=== PATIENT | female | born 1980 | race Caucasian/White ===

== ENCOUNTER 2019-05-15 14:26 | Emergency (ER) | payer SELFPAY ==
[2019-05-15] MEDS ORDERED: Ibuprofen TAB* 600 MG PO ONE (14:29)
--- NOTE | 2019-05-15 14:36 | ED ---
Lower Extremity - HPI Summary HPI Summary: Patient is a 38 y/o F presenting to the ED via EMS for a chief complaint of left ankle pain and swelling. 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 She twisted her left ankle and now has left ankle pain and swelling. She also admits numbness in the left ankle, but denies paresthesia. Patient denies head injury or back pain. She denies any alleviating factors, but admits the pain worsens with movement. Patient denies PMHx, but admits PSHx of 4 months ago. Patient denies alcohol, tobacco, or drug use. Medications reviewed. Allergies noted. - History of Current Complaint Stated Complaint: LT ANKLE INJ PER EMS Time Seen by Provider: 05/15/19 14:29 Hx Obtained From: Patient Mechanism Of Injury: Fall From Height Of: - 4 feet Onset of Pain: Immediate Onset/Duration: Minutes Severity Initially: Moderate Severity Currently: Moderate Pain Scale Used: 0-10 Numeric Timing: Constant Location: Is Discrete @ - Left ankle Character Of Pain: Unable To Describe Associated Signs And Symptoms: Positive: Swelling, Other - Positive left ankle pain Aggravating Factor(s): Nothing Related History: Occupational Injury - Allergies/Home Medications Allergies/Adverse Reactions: Allergies Allergy/AdvReac Type Severity Reaction Status Date / Time bee venom protein (honey bee) Allergy Anaphylatic Verified 05/15/19 14:44 Shock PMH/Surg Hx/FS Hx/Imm Hx Previously Healthy: Yes Endocrine/Hematology History: Denies: Hx Anticoagulant Therapy, Hx Diabetes Cardiovascular History: Denies: Hx Hypercholesterolemia, Hx Hypertension Sensory History: Denies: Hx Legally Blind, Hx Deafness Opthamlomology History: Denies: Hx Legally Blind EENT History: Denies: Hx Deafness Psychiatric History: Reports: Hx Depression Denies: Other Psychiatric Issues/Disorders - Pt's Father diagnosed w/ Schizophrenia - Surgical History Surgical History: Yes Surgery Procedure, Year, and Place: Infectious Disease History: No - Family History Known Family History: Negative: Blood Disorder - Social History Occupation: Employed Full-time Lives: With Family Alcohol Use: None Hx Substance Use: No Substance Use Type: Reports: None Hx Tobacco Use: No Smoking Status (MU): Never Smoked Tobacco Have You Smoked in the Last Year: No Review of Systems Positive: Arthralgia - Left ankle, Edema - Left ankle. Negative: Myalgia - Negative back pain Neurological: Other - Negative head injury Positive: Numbness - Left ankle. Negative: Paresthesia All Other Systems Reviewed And Are Negative: Yes Physical Exam - Summary Physical Exam Summary: Constitutional: Well-developed, Well-nourished, Alert. (-) Distressed Skin: Warm, Dry HENT: Normocephalic; Atraumatic Eyes: Conjunctiva normal Neck: Musculoskeletal ROM normal neck. (-) JVD, (-) Stridor, (-) Tracheal deviation Cardio: Rhythm regular, rate normal, Heart sounds normal; Intact distal pulses; Radial pulses are 2+ and symmetric. (-) Murmur Pulmonary/Chest wall: Effort normal. (-) Respiratory distress, (-) Wheezes, (-) Rales Abd: Soft, (-) tenderness, (-) Distension, (-) Guarding, (-) Rebound Musculoskeletal: Tenderness and swelling of the left ankle over the lateral malleolus, no bony tenderness, DP/PT pulses present. Lymph: (-) Cervical adenopathy Neuro: Alert, Oriented x3 Psych: Mood and affect Normal Triage Information Reviewed: Yes Vital Signs Reviewed: Yes Procedures - Sedation Patient Received Moderate/Deep Sedation with Procedure: No Diagnostics - Laboratory Lab Statement: Any lab studies that have been ordered have been reviewed, and results considered in the medical decision making process. - Radiology Ankle X-ray Radiology Interpretation Completed By: Radiologist Summary of Radiographic Findings: Ankle X-ray IMPRESSION: No fracture of the left ankle is noted. Reviewed by Dr. Aranda. Lower Extremity Course/Dx - Course Course Of Treatment: Patient is here with a left ankle injury. Patient has no other injuries. Patient had a negative x-ray for fracture. Patient had an Elder wrap applied and given crutches for support. - Diagnoses Provider Diagnoses: Ankle sprain Discharge ED - Sign-Out/Discharge Documenting (check all that apply): Patient Departure - Discharge - Discharge Plan Condition: Stable Disposition: HOME Patient Education Materials: Ankle Sprain (ED) Forms: *Work Release Referrals: [facility] [Outside] Additional Instructions: Take Motrin and Tylenol for pain. Elevate the ankle, ice it, and use an ELDER wrap for comfort. PLEASE RETURN TO EMERGENCY DEPARTMENT FOR ANY NEW OR WORSENING SYMPTOMS. Please follow up with your primary care physician if you continue to have pain. Please make all follow-ups in 1-3 days unless I advise you otherwise. - Billing Disposition and Condition Condition: STABLE Disposition: Home - Attestation Statements Document Initiated by Ashley: Yes Documenting Scribe: Charla Ruth Provider For Whom Ashley is Documenting (Include Credential): Brown Aranda MD Scribe Attestation: I, Charla Ruth, scribed for Brown Aranda MD on 05/15/19 at 2126. Scribe Documentation Reviewed: Yes Provider Attestation: The documentation as recorded by the Charla peres accurately reflects the service I personally performed and the decisions made by me, Brown Aranda MD Status of Scribe Document: Viewed
[2019-05-15 16:32] VITALS: BP 140/89
== END 2019-05-15 16:26 | disposition home or self-care (01) ==
LOC: ED 14:26
DX: S93.402A Sprain of unspecified ligament of left ankle, initial encounter (principal); W11.XXXA Fall on and from ladder, initial encounter; Y92.89 Other specified places as the place of occurrence of the external cause
CPT/HCPCS: 99281; A9270-GY

== ENCOUNTER 2019-05-22 08:58 | Emergency (ER) | payer SELFPAY ==
[2019-05-22 09:26] VITALS: BP 148/102
--- NOTE | 2019-05-22 10:16 | UC ---
Lower Extremity/Ankle HPI - HPI Summary HPI Summary: Patient is a 38yo female presenting with L ankle sprain that happened at work 1 week ago. States she was seen at ED and diagnosed with "bad sprain." States there were no fractures on xray. Patient states she wanted her ankle rechecked to make sure it was healing well. She also states that she needs a note releasing her from work until when she was able to schedule her follow- up appointment. Patient states that she is "doing RICE" and the swelling has reduced and this was the first day she was able to put her boot on. Notes bruising still but that it has also improved. She does note that she can bear weight and put pressure on the ankle and foot. Notes continued pain and decreased ROM with R foot inversion and eversion. Denies pain at rest. Denies decreased sensation. - History of Current Complaint Chief Complaint: UCLowerExtremity Stated Complaint: RECHECK OF ANKLE INJURY WC Hx Obtained From: Patient Hx Last Menstrual Period: del 12/22/18 Onset/Duration: Sudden Onset, Lasting Days Severity Currently: Severe Pain Intensity: 7 Pain Scale Used: 0-10 Numeric - Allergies/Home Medications Allergies/Adverse Reactions: Allergies Allergy/AdvReac Type Severity Reaction Status Date / Time bee venom protein (honey bee) Allergy Anaphylatic Verified 05/22/19 09:26 Shock PMH/Surg Hx/FS Hx/Imm Hx Previously Healthy: Yes Other History Of: Negative For: Anticoagulant Therapy - Surgical History Surgical History: Yes Surgery Procedure, Year, and Place: ,tubal - Family History Known Family History: Positive: Non-Contributory Negative: Blood Disorder - Social History Occupation: Employed Part-time Lives: With Family Alcohol Use: None Substance Use Type: None Smoking Status (MU): Never Smoked Tobacco Have You Smoked in the Last Year: No - Immunization History Most Recent Influenza Vaccination: never Most Recent Tetanus Shot: 12/2014 Most Recent Pneumonia Vaccination: never Review of Systems All Other Systems Reviewed And Are Negative: No Constitutional: Positive: Negative Skin: Positive: Bruising - L ankle and foot Respiratory: Positive: Negative Cardiovascular: Positive: Negative Neurovascular: Positive: Negative. Negative: Decreased Sensation Musculoskeletal: Positive: Arthralgia - L ankle, Decreased ROM - L foot inversion and eversion, Edema - L ankle. Negative: Calf Tenderness Neurological: Negative: Paresthesia, Numbness Physical Exam Triage Information Reviewed: Yes Appearance: Well-Appearing, No Pain Distress, Well-Nourished Vital Signs: Initial Vital Signs Temp 98.8 F 05/22/19 09:22 Pulse 68 05/22/19 09:22 Resp 16 05/22/19 09:22 BP 148/102 05/22/19 09:22 Pulse Ox 100 05/22/19 09:22 Vital Signs Reviewed: Yes Eyes: Positive: Conjunctiva Clear ENT: Positive: Hearing grossly normal Neck: Positive: Supple Respiratory Exam: Normal Respiratory: Positive: Lungs clear, Normal breath sounds, No respiratory distress Cardiovascular Exam: Normal Cardiovascular: Positive: RRR, Pulses Normal - strong pedal pulses b/l, Brisk Capillary Refill Musculoskeletal: Positive: Strength Intact, ROM Limited @ - L foot inversion and eversion d/t pain, Edema @ - L medial and lateral ankle Neurological Exam: Other - sensation grossly intact Neurological: Positive: Alert Psychological: Positive: Age Appropriate Behavior Skin: Positive: Other - ecchymosis noted of medial and lateral ankle and forefoot Lower Extremity Course/Dx - Course Course Of Treatment: Patient sensation grossly intact, pulses strong, mild edema, and able to bear weight. I provided patient with new ebonie wrap, gel splint, and work excuse. Instructed to continue with RICE and to attend her follow up appt on . Patient voiced understanding and agreed with treatment plan. - Differential Dx/Diagnosis Provider Diagnosis: Left ankle sprain Discharge ED - Sign-Out/Discharge Documenting (check all that apply): Patient Departure All imaging exams completed and their final reports reviewed: No Studies - Discharge Plan Condition: Stable Disposition: HOME Patient Education Materials: Ankle Sprain (ED), Ankle Stirrup Splint (ED) Forms: *Work Release Referrals: Jhon Le MD [Primary Care Provider] - Additional Instructions: Continue to rest, ice, elevate, the ankle. You may use the ebonie wrap and/or gel splint to help support the ankle. Be sure to attend your follow up appointment on 05/24/19. - Billing Disposition and Condition Condition: STABLE Disposition: Home
== END 2019-05-22 10:35 | disposition home or self-care (01) ==
LOC: UCEAST 08:58
DX: S93.402A Sprain of unspecified ligament of left ankle, initial encounter (principal); Z91.030 Bee allergy status; X58.XXXA Exposure to other specified factors, initial encounter; Y92.9 Unspecified place or not applicable
CPT/HCPCS: 99213; G0463